=== PATIENT | male | born 1940 | race American Indian/Alaskan Native ===

== ENCOUNTER 2022-07-25 14:52 | Emergency (ER) | payer MEDICARE, OTHER ==
--- NOTE | 2022-07-25 16:01 | XRay Report ---
RIGHT HAND 3 VIEW(S) INDICATION / CLINICAL INFORMATION: SWOLLEN HAND COMPARISON: None available. FINDINGS: BONES / JOINT(S): Comminuted fracturing of the fourth and fifth metacarpals. Additional nondisplaced multifocal fracturing of the proximal joints of the fourth digit, fracture line extending to the four th MCP. SOFT TISSUES: Advanced atherosclerosis. ADDITIONAL FINDINGS: None. IMPRESSION: 1. Multifocal fourth and fifth metacarpal fracturing as well as fracturing of the proximal joints of the fourth digit. Signer Name: Corrie De Guzman MD Signed: 07/25/2022 3:57 PM Workstation Name: [employer]
[2022-07-25] MEDS ORDERED: HYDROcodone/ACETAMINOPHEN 5-325 MG TAB PO ONE (19:13)
--- NOTE | 2022-07-25 21:03 | Emergency Department Report ---
ED Upper Extremity Inj HPI - General Chief Complaint: Extremity Injury, Upper Stated Complaint: FALL/RT WRIST AND HAND INJURY Time Seen by Provider: 07/25/22 19:05 Source: patient Mode of arrival: Ambulatory Limitations: Other - History of Present Illness Initial Comments: 81-year-old [id number] male with a past medical history of diabetes, hearing impairment, and mild dementia presents to the hospital complaining of right hand pain after fall. Fall was witnessed by his son. Patient did hit his head but denies headache or LOC. Patient complains of moderate to severe right hand pain with swelling. Pain is constant and worse with movement and palpation. Pt currently take ASA and plavix. Son confirms pt is at his baseline mental status - Related Data Previous Rx's Medication Instructions Recorded Last Taken Type Acetaminophen [Acetaminophen 8 650 mg PO Q8HR PRN #20 tab 07/25/22 Unknown Rx Hour] HYDROcodone/APAP 5-325 [[place] 1 each PO Q6HR PRN #12 tablet 07/25/22 Unknown Rx 5/325] Allergies Allergy/AdvReac Type Severity Reaction Status Date / Time No Known Allergies Allergy Unverified 07/25/22 15:15 ED Review of Systems ROS: Stated complaint: FALL/RT WRIST AND HAND INJURY Other details as noted in HPI Comment: All other systems reviewed and negative ED Past Medical Hx - Past Medical History Hx Diabetes: Yes - Surgical History Hx Coronary Stent: Yes Hx Open Heart Surgery: Yes - Medications Home Medications: Home Medications Medication Instructions Recorded Confirmed Last Taken Type Acetaminophen [Acetaminophen 8 650 mg PO Q8HR PRN #20 tab 07/25/22 Unknown Rx Hour] HYDROcodone/APAP 5-325 [[place] 1 each PO Q6HR PRN #12 tablet 07/25/22 Unknown Rx 5/325] ED Physical Exam - General Limitations: Other - Other Other exam information: General: No acute distress Head: Atraumatic, no contusion or scalp swelling Eyes: normal appearance ENT: Moist mucous membranes Neck: Normal appearance, no midline tenderness Chest: Clear to auscultation bilaterally CV: Regular rate and rhythm Abdomen: Soft, normal bowel sounds, nontender, nondistended, no rebound or guarding Back: Normal inspection Extremity: Diffuse right hand swelling with tenderness. Limited movement of fourth and fifth fingers secondary to pain. Neuro: Alert O x 3, no facial asymmetry, speech clear, no gross motor sensory deficit Psych: Appropriate behavior Skin: No rash ED Course Vital Signs 07/25/22 15:16 Temperature 99.0 F Pulse Rate 85 Respiratory 18 Rate Blood Pressure 144/56 O2 Sat by Pulse 99 Oximetry - Consultations Consultation #1: 07/25/22 19:[address] Blanchard orthopedic physician. Images reviewed. Recommends volar splint, sling, and outpatient follow-up for probable surgical with. ED Medical Decision Making - Radiology Data Radiology results: report reviewed RIGHT HAND 3 VIEW(S) INDICATION / CLINICAL INFORMATION: SWOLLEN HAND COMPARISON: None available. FINDINGS: BONES / JOINT(S): Comminuted fracturing of the fourth and fifth metacarpals. Additional nondisplaced multifocal fracturing of the proximal joints of the fourth digit, fracture line extending to the fourth MCP. SOFT TISSUES: Advanced atherosclerosis. ADDITIONAL FINDINGS: None. IMPRESSION: 1. Multifocal fourth and fifth metacarpal fracturing as well as fracturing of the proximal joints of the fourth digit. - Medical Decision Making 81-year-old male presents to the hospital with fall and right hand injury. Patient has multiple fractures involving the right fourth and fifth metacarpals. Case discussed orthopedic surgeon. Recommend volar splint and sling placed. Patient provided [place] for pain. Sling provided. Patient to follow-up with orthopedic surgeon Left arm volar splint placed by tech and inspected by me. Deemed effective. Patient denies discomfort. Cap refill remains less than 2 seconds. Patient placed in sling prior to discharge. Critical Care Time: No Critical care attestation.: If time is entered above; I have spent that time in minutes in the direct care of this critically ill patient, excluding procedure time. ED Disposition Clinical Impression: Right hand fracture, Fall Disposition: 01 HOME / SELF CARE / HOMELESS Is pt being admited?: No Does the pt Need Aspirin: No Condition: Stable Instructions: Metacarpal Fracture, [id number] Additional Instructions: Take the medication as prescribed. Follow-up with the orthopedic doctor provided with orthopedic doctor of your choice. Return if symptoms worsen as indicated by your discharge instructions. Prescriptions: Acetaminophen [Acetaminophen 8 Hour] 650 mg PO Q8HR PRN #20 tab PRN Reason: Pain, Moderate (4-6) HYDROcodone/APAP 5-325 [[place] 5/325] 1 each PO Q6HR PRN #12 tablet PRN Reason: Pain Referrals: KULDEEP BLANCHARD MD [Staff Physician] - 3-5 Days (orthopedics ) Time of Disposition: 21:09
[2022-07-25 21:35] VITALS: BP 147/62
== END 2022-07-25 21:50 | disposition home or self-care (01) ==
LOC: ED 14:52
DX: S62.91XA Unspecified fracture of right hand, initial encounter for closed fracture (principal); W19.XXXA Unspecified fall, initial encounter; Y93.89 Activity, other specified; Y92.89 Other specified places as the place of occurrence of the external cause; Y99.8 Other external cause status
CPT/HCPCS: 99283